=== PATIENT | male | born 1990 | race African-American/Black ===

== ENCOUNTER 2018-08-24 08:38 | Emergency (ER) | payer OTHER ==
[~2018-08-24] VITALS: Ht 188 cm; Wt 112.3 kg
[2018-08-24 10:06] VITALS: BP 132/90
== END 2018-08-24 10:33 | disposition home or self-care (01) ==
LOC: ED 09:48
DX: S43.421A Sprain of right rotator cuff capsule, initial encounter (principal); V89.2XXA Person injured in unspecified motor-vehicle accident, traffic, initial encounter; Y93.89 Activity, other specified; Y99.8 Other external cause status; Y92.410 Unspecified street and highway as the place of occurrence of the external cause
CPT/HCPCS: 99284